=== PATIENT | male | born 1930 | race Caucasian/White ===

== ENCOUNTER 2018-02-25 09:19 | Inpatient (IN) | payer MEDICARE, OTHER ==
[~2018-02-25] VITALS: Ht 180.3 cm; Wt 96.4 kg
[~2018-02-25 09:19] MED LIST: ACYC800 PO; ALBIPROI; ALBU3IS INH; ALBU90I; ALBU90OI INH; ALBUIS INH; ALPR.5 PO; AMOCLA875 PO; AMOX500 PO; ASPI81EC PO; ATOR40TA PO; AZIT500 PO; BAYER CHEWABLE81 MG PO; BUDE10.22 INH; CEFD300 PO; CENTRUM SILVER1 EAC2 PO; CHOL10002 PO; CLAR500 PO; CLON.5 PO; CODGUAEL PO; DIAZ10; DIAZ10 PO; DIAZEPAM; DILT120 PO; DOXY100; DOXY100 PO; Ducodyl5 MG PO; ESCI20 PO; FLUSAL1005; FLUSAL1005 IH; FLUSAL2505 IH; HYDPAM25 PO; HYDROXYZPAM; LEVFLO500 PO; LISHYD1012 PO; LISI5 PO; LORA.5 PO; LORA2; METF500C PO; METO25ER PO; METO50; METO50 PO; METO50ER PO; METOPROLOL; MIRT15 PO; MULVITMINF PO; NITR.4SL SL; OMEP20ER; OMEP20ER PO; OMEP40CA12 PO; OMEPRAZOLE MAGN20 MG PO; OTC PROSTATE MED; OXYACE5T PO; Omeprazole20 M1 PO; PARO12.5; PARO20; PRAV20; PRAV20 PO; PRAV40 PO; PRED10 PO; PRED20 PO; Prednisone20 MG PO; QUET100 PO; TAMS.4ER; TAMS.4ER PO; TIOT18; TIOT18 IH; TUDORZA PRESS400 MCG IH; VENL150ER PO; Ventolin Soln3 ML INH; [UNRECOGNIZED DRUG - CODE] PO; [UNRECOGNIZED DRUG - OTHER]
[2018-02-25 10:03] LABS: BASOPHILS ABSOLUTE AUTO 0.03 K/mm3 (0.00-0.23); BASOPHILS PERCENT AUTO 0 % (0-2); EOSINOPHILS PERCENT AUTO 0 % (0-6); Hematocrit 40.4 % (37.0-53.0); Hemoglobin 12.8 g/dL (13.5-17.5); IMMATURE GRAN PERCENT AUTO 1 % (0-1); LYMPHOCYTES ABSOLUTE AUTO 0.97 K/mm3 (0.84-5.20); LYMPHOCYTES PERCENT AUTO 6 % (21-46); MONOCYTES ABSOLUTE AUTO 1.15 K/mm3 (0.16-1.47); MONOCYTES PERCENT AUTO 7 % (4-13); Mean Corpuscular HGB 29.1 pg (26.0-34.0); Mean Corpuscular HGB Conc 31.7 g/dL (31.5-36.5); Mean Corpuscular Volume 92 fL (80-100); Mean Platelet Volume 10.2 fL (9.1-12.4); NEUTROPHILS ABSOLUTE AUTO 14.22 K/mm3 (1.96-9.15); NEUTROPHILS PERCENT AUTO 86 % (41-73); Platelet Count 213 K/mm3 (150-400); White Blood Cell Count 16.47 K/mm3 (4.00-11.30)
[2018-02-25 10:18] LABS: Alanine Aminotransfer (ALT/SGP 24 U/L (12-78); Albumin, Blood 3.7 g/dL (3.4-5.0); Albumin/Globulin Ratio 0.9 (0.8-1.8); Alk Phos 109 U/L (50-136); Anion Gap 9 mmol/L (6-16); Aspartate Aminotrans (AST/SGOT 23 U/L (12-37); Blood Urea Nitrogen 18 mg/dL (8-24); Bun/Creatinine Ratio 15.7 (12.0-20.0); CO2, Blood 25 mmol/L (21-32); Calcium, Blood 8.8 mg/dL (8.5-10.1); Chloride, Blood 107 mmol/L (98-108); Creatinine, Blood 1.15 mg/dL (0.60-1.20); Globulin, Blood 4.2 g/dL (2.2-4.0); Glomerular Filtration Rate >60 (60-); Glucose, Blood 114 mg/dL (70-99); Potassium, Blood 4.2 mmol/L (3.5-5.5); Sodium, Blood 141 mmol/L (136-145); Total Protein, Blood 7.9 g/dL (6.4-8.2); Troponin I 0.092 ng/mL (0.000-0.040)
[2018-02-25] MEDS ORDERED: RISP.5 PO (12:44)
[2018-02-25 15:00] LABS: Source, Urine Voided
[2018-02-25 15:02] LABS: Bilirubin, Urine Neg (Neg); Blood, Urine 1+ (Neg); Glucose Qualitative, Urine Neg (Neg); Ketones, Urine Neg (Neg); Leukocyte Esterase, Urine Neg (Neg); Nitrite, Urine Neg (Neg); Protein, Urine Neg (Neg); Specific Gravity, Urine 1.015 (1.003-1.022); Urobilinogen, Urine NORM (Normal)
[2018-02-25 15:10] LABS: Appearance, Urine Clear (Clear); Color, Urine Yellow (P-Yellow)
[2018-02-25 15:11] LABS: White Blood Cells, Urine 0-2 /hpf (0-5)
[2018-02-25 15:12] LABS: Bacteria Few /hpf; Squamous Epithelial Cells Few /hpf (Few)
[2018-02-25] MEDS ORDERED: ESCI20 PO (16:06)
[2018-02-25 17:27] LABS: Adenovirus Not Detected (NOT DETECT); Bordetella pertussis Not Detected (NOT DETECT); Chlamydophila pneumoniae Not Detected (NOT DETECT); Coronavirus 229E Not Detected (NOT DETECT); Coronavirus HKU1 Not Detected (NOT DETECT); Coronavirus NL63 Not Detected (NOT DETECT); Coronavirus OC43 Not Detected (NOT DETECT); Human Metapneumovirus Not Detected (NOT DETECT); Human Rhinovirus/Enterovirus Not Detected (NOT DETECT); Influenza A/2009-H1 Not Detected (NOT DETECT); Influenza A/H1 Not Detected (NOT DETECT); Influenza A/H3 Not Detected (NOT DETECT); Influenza B Not Detected (NOT DETECT); Mycoplasma pneumoniae Not Detected (NOT DETECT); Parainfluenza Virus 1 Not Detected (NOT DETECT); Parainfluenza Virus 2 Not Detected (NOT DETECT); Parainfluenza Virus 3 Not Detected (NOT DETECT); Parainfluenza Virus 4 Not Detected (NOT DETECT); Respiratory Syncytial Virus Not Detected (NOT DETECT)
[2018-02-25 19:15] LABS: Influenza A Not Detected (NOT DETECT)
[2018-02-26 06:16] LABS: BASOPHILS ABSOLUTE AUTO 0.01 K/mm3 (0.00-0.23); BASOPHILS PERCENT AUTO 0 % (0-2); EOSINOPHILS PERCENT AUTO 0 % (0-6); Hematocrit 36.5 % (37.0-53.0); Hemoglobin 11.4 g/dL (13.5-17.5); IMMATURE GRAN ABSOLUTE AUTO 0.14 K/mm3 (0.00-0.10); IMMATURE GRAN PERCENT AUTO 1 % (0-1); LYMPHOCYTES ABSOLUTE AUTO 1.42 K/mm3 (0.84-5.20); LYMPHOCYTES PERCENT AUTO 9 % (21-46); MONOCYTES ABSOLUTE AUTO 0.37 K/mm3 (0.16-1.47); MONOCYTES PERCENT AUTO 3 % (4-13); Mean Corpuscular HGB 28.7 pg (26.0-34.0); Mean Corpuscular HGB Conc 31.2 g/dL (31.5-36.5); Mean Corpuscular Volume 92 fL (80-100); Mean Platelet Volume 10.9 fL (9.1-12.4); NEUTROPHILS ABSOLUTE AUTO 13.13 K/mm3 (1.96-9.15); NEUTROPHILS PERCENT AUTO 87 % (41-73); Platelet Count 193 K/mm3 (150-400); RDW Coefficient Variation 15.2 % (11.7-14.2); Red Blood Cell Count 3.97 M/mm3 (4.30-5.90); White Blood Cell Count 15.07 K/mm3 (4.00-11.30)
[2018-02-26 06:34] LABS: Anion Gap 10 mmol/L (6-16); Blood Urea Nitrogen 20 mg/dL (8-24); Bun/Creatinine Ratio 21.7 (12.0-20.0); CO2, Blood 25 mmol/L (21-32); Calcium, Blood 8.7 mg/dL (8.5-10.1); Chloride, Blood 105 mmol/L (98-108); Creatinine, Blood 0.92 mg/dL (0.60-1.20); Glomerular Filtration Rate >60 (60-); Glucose, Blood 169 mg/dL (70-99); Potassium, Blood 3.9 mmol/L (3.5-5.5); Sodium, Blood 140 mmol/L (136-145)
[2018-02-26 18:48] LABS: Adenovirus F 40/41 Not Detected (NOT DETECT); Astrovirus Not Detected (NOT DETECT); Campylobacter Sp Not Detected (NOT DETECT); Cryptosporidium Not Detected (NOT DETECT); Cyclospora Cayetanensis Not Detected (NOT DETECT); E. Coli O157 Not Detected (NOT DETECT); Entamoeba Histolytica Not Detected (NOT DETECT); Enteroaggregative E. coli-EAEC Not Detected (NOT DETECT); Enteropathogenic E. coli-EPEC Not Detected (NOT DETECT); Enterotoxigenic E. coli-ETEC Not Detected (NOT DETECT); Giardia Lamblia Not Detected (NOT DETECT); Norovirus GI/GII Not Detected (NOT DETECT); Plesiomonas Shigelloides Not Detected (NOT DETECT); Rotavirus A Not Detected (NOT DETECT); Salmonella Sp Not Detected (NOT DETECT); Sapovirus Not Detected (NOT DETECT); Shiga Toxin-prod E. coli-STEC Not Detected (NOT DETECT); Shigella/Enteroin E. coli-EIEC Not Detected (NOT DETECT); Vibrio Cholerae Not Detected (NOT DETECT); Vibrio Sp Not Detected (NOT DETECT); Yersinia Enterocolitica Not Detected (NOT DETECT)
[2018-02-27 04:56] LABS: BASOPHILS ABSOLUTE AUTO 0.01 K/mm3 (0.00-0.23); BASOPHILS PERCENT AUTO 0 % (0-2); EOSINOPHILS PERCENT AUTO 0 % (0-6); Hematocrit 33.6 % (37.0-53.0); Hemoglobin 10.5 g/dL (13.5-17.5); IMMATURE GRAN ABSOLUTE AUTO 0.11 K/mm3 (0.00-0.10); IMMATURE GRAN PERCENT AUTO 1 % (0-1); LYMPHOCYTES ABSOLUTE AUTO 1.04 K/mm3 (0.84-5.20); LYMPHOCYTES PERCENT AUTO 8 % (21-46); MONOCYTES ABSOLUTE AUTO 0.44 K/mm3 (0.16-1.47); MONOCYTES PERCENT AUTO 3 % (4-13); Mean Corpuscular HGB 29.1 pg (26.0-34.0); Mean Corpuscular HGB Conc 31.3 g/dL (31.5-36.5); Mean Corpuscular Volume 93 fL (80-100); Mean Platelet Volume 10.9 fL (9.1-12.4); NEUTROPHILS ABSOLUTE AUTO 11.44 K/mm3 (1.96-9.15); NEUTROPHILS PERCENT AUTO 88 % (41-73); Platelet Count 182 K/mm3 (150-400); RDW Coefficient Variation 15.6 % (11.7-14.2); RDW Standard Deviation 53.4 fL (35.1-46.3); Red Blood Cell Count 3.61 M/mm3 (4.30-5.90); White Blood Cell Count 13.04 K/mm3 (4.00-11.30)
[2018-02-27 05:14] LABS: Anion Gap 8 mmol/L (6-16); Blood Urea Nitrogen 21 mg/dL (8-24); Bun/Creatinine Ratio 22.9 (12.0-20.0); CO2, Blood 24 mmol/L (21-32); Calcium, Blood 8.3 mg/dL (8.5-10.1); Chloride, Blood 112 mmol/L (98-108); Creatinine, Blood 0.92 mg/dL (0.60-1.20); Glomerular Filtration Rate >60 (60-); Glucose, Blood 151 mg/dL (70-99); Potassium, Blood 4.3 mmol/L (3.5-5.5); Sodium, Blood 144 mmol/L (136-145)
[2018-03-01] MEDS ORDERED: DELTASONE20 MG PO (12:36)
[2018-03-01] MEDS ORDERED: Advair Hfa 45-212 GM INH (12:37)
== END 2018-03-01 13:32 | disposition home or self-care (01) | DRG 189 ==
LOC: ER 09:19 → MEDS 12:19 → ENPENDDIS 03-01 11:30 → MEDS 03-01 13:32
PROVIDERS: Emergency Medicine; Hospitalist
DX: J96.21 Acute and chronic respiratory failure with hypoxia (principal); G92 Toxic encephalopathy; I21.A1 Myocardial infarction type 2; E87.2 Acidosis; J44.1 Chronic obstructive pulmonary disease with (acute) exacerbation; A08.4 Viral intestinal infection, unspecified; E11.9 Type 2 diabetes mellitus without complications; Z85.118 Personal history of other malignant neoplasm of bronchus and lung; Z90.2 Acquired absence of lung [part of]; Z87.891 Personal history of nicotine dependence; E78.5 Hyperlipidemia, unspecified; K21.9 Gastro-esophageal reflux disease without esophagitis
CPT/HCPCS: 36415; 71046; 80048; 80053; 81001; 82947; 83605; 84145; 84484; 85025; 87040; 87070; 87205; 87486; 87507; 87581; 87633; 87798; 93005; 93010; 94640; 94760; 94762; 96361; 96365; 96367; 96375; 97162; 97530; 99285-25; G8978; G8979; G8980; J0456; J0696; J1650; J2920; J2930; J3475; J7030; J7050

== ENCOUNTER 2018-12-01 12:43 | Inpatient (IN) | payer MEDICARE, OTHER ==
[~2018-12-01] VITALS: Ht 177.8 cm; Wt 96.2 kg
[~2018-12-01 12:43] MED LIST changes: +Advair Hfa 45-212 GM INH; +DELTASONE20 MG PO; +RISP.5 PO
[2018-12-01 13:56] LABS: BASOPHILS ABSOLUTE AUTO 0.04 K/mm3 (0.00-0.23); BASOPHILS PERCENT AUTO 0 % (0-2); EOSINOPHILS PERCENT AUTO 0 % (0-6); Hematocrit 42.1 % (37.0-53.0); Hemoglobin 13.3 g/dL (13.5-17.5); IMMATURE GRAN ABSOLUTE AUTO 0.17 K/mm3 (0.00-0.10); IMMATURE GRAN PERCENT AUTO 1 % (0-1); LYMPHOCYTES ABSOLUTE AUTO 1.67 K/mm3 (0.84-5.20); LYMPHOCYTES PERCENT AUTO 8 % (21-46); MONOCYTES ABSOLUTE AUTO 0.95 K/mm3 (0.16-1.47); MONOCYTES PERCENT AUTO 5 % (4-13); Mean Corpuscular HGB 27.2 pg (26.0-34.0); Mean Corpuscular HGB Conc 31.6 g/dL (31.5-36.5); Mean Corpuscular Volume 86 fL (80-100); Mean Platelet Volume 10.3 fL (9.1-12.4); NEUTROPHILS PERCENT AUTO 86 % (41-73); Platelet Count 202 K/mm3 (150-400); RDW Coefficient Variation 15.5 % (11.7-14.2); RDW Standard Deviation 48.9 fL (35.1-46.3); Red Blood Cell Count 4.89 M/mm3 (4.30-5.90); White Blood Cell Count 20.13 K/mm3 (4.00-11.30)
[2018-12-01 14:15] LABS: Alanine Aminotransfer (ALT/SGP 32 U/L (12-78); Albumin, Blood 3.9 g/dL (3.4-5.0); Alk Phos 114 U/L (50-136); Anion Gap 4 mmol/L (6-16); Aspartate Aminotrans (AST/SGOT 32 U/L (12-37); Bilirubin, Total 1.3 mg/dL (0.1-1.0); Blood Urea Nitrogen 20 mg/dL (8-24); Bun/Creatinine Ratio 17.1 (12.0-20.0); CO2, Blood 29 mmol/L (21-32); Calcium, Blood 8.8 mg/dL (8.5-10.1); Chloride, Blood 103 mmol/L (98-108); Creatinine, Blood 1.17 mg/dL (0.60-1.20); Globulin, Blood 4.1 g/dL (2.2-4.0); Glomerular Filtration Rate >60 (60-); Glucose, Blood 134 mg/dL (70-99); Potassium, Blood 4.7 mmol/L (3.5-5.5); Sodium, Blood 136 mmol/L (136-145); Troponin I <0.015 ng/mL (0.000-0.040)
[2018-12-01 14:39] LABS: Source, Urine Clean Catch
[2018-12-01 14:52] LABS: Bilirubin, Urine Neg (Neg); Blood, Urine 1+ (Neg); Glucose Qualitative, Urine Neg (Neg); Ketones, Urine Neg (Neg); Leukocyte Esterase, Urine Neg (Neg); Nitrite, Urine Neg (Neg); Protein, Urine 1+ (Neg); Specific Gravity, Urine 1.015 (1.003-1.022); Urobilinogen, Urine NORM (Normal)
[2018-12-01 15:02] LABS: Appearance, Urine Clear (Clear); Color, Urine Yellow (P-Yellow)
[2018-12-01 15:19] LABS: Bacteria Few /hpf; Mucus Light (0-Heavy); Red Blood Cells, Urine Rare /hpf (0-2); Squamous Epithelial Cells Few /hpf (Few); White Blood Cells, Urine Rare /hpf (0-5)
[2018-12-02] MEDS ORDERED: DUTA.5 PO (02:54)
[2018-12-02] MEDS ORDERED: ANORO ELLIPTA1 EACH INH (03:00)
[2018-12-02] MEDS ORDERED: ATOR40TA PO (03:02)
[2018-12-02] MEDS ORDERED: OMEPRAZOLE20 MG PO (03:02)
--- NOTE | 2018-12-02 04:48 | NUR ---
SHIFT SUMMARY PT ARRIVED TO FLOOR IN NO DISTRESS. PT DAUGHTER STAYED NIGHT WITH PT. PT HAS NO COMPLAINTS. PT IS SLEEPING WELL WITH CPAP. PT HAS NO DENTURES AND HAS DIFFICULTY EATING PER DAUGHTER. PT DAUGHTER STATES PT WILL BE RECIEVING SET OF DENTURES VERY SOON. PT CURRENTLY SLEEPING WITH CPAP AND BREATHING EASY. CALL LIGHT IN REACH AND BED ALARM ON.
[2018-12-02 05:22] LABS: BASOPHILS ABSOLUTE AUTO 0.02 K/mm3 (0.00-0.23); BASOPHILS PERCENT AUTO 0 % (0-2); EOSINOPHILS PERCENT AUTO 0 % (0-6); Hematocrit 35.4 % (37.0-53.0); IMMATURE GRAN ABSOLUTE AUTO 0.03 K/mm3 (0.00-0.10); IMMATURE GRAN PERCENT AUTO 0 % (0-1); LYMPHOCYTES ABSOLUTE AUTO 2.58 K/mm3 (0.84-5.20); LYMPHOCYTES PERCENT AUTO 29 % (21-46); MONOCYTES PERCENT AUTO 9 % (4-13); Mean Corpuscular HGB 27.9 pg (26.0-34.0); Mean Corpuscular HGB Conc 31.1 g/dL (31.5-36.5); Mean Platelet Volume 10.6 fL (9.1-12.4); NEUTROPHILS ABSOLUTE AUTO 5.53 K/mm3 (1.96-9.15); NEUTROPHILS PERCENT AUTO 62 % (41-73); Platelet Count 150 K/mm3 (150-400); RDW Coefficient Variation 15.9 % (11.7-14.2); RDW Standard Deviation 52.3 fL (35.1-46.3); Red Blood Cell Count 3.94 M/mm3 (4.30-5.90); White Blood Cell Count 8.96 K/mm3 (4.00-11.30)
[2018-12-02 05:24] LABS: Mean Corpuscular Volume 90 fL (80-100)
[2018-12-02 05:37] LABS: Anion Gap 5 mmol/L (6-16); Blood Urea Nitrogen 27 mg/dL (8-24); Bun/Creatinine Ratio 22.9 (12.0-20.0); CO2, Blood 30 mmol/L (21-32); Calcium, Blood 8.2 mg/dL (8.5-10.1); Chloride, Blood 108 mmol/L (98-108); Creatinine, Blood 1.18 mg/dL (0.60-1.20); Glomerular Filtration Rate >60 (60-); Glucose, Blood 94 mg/dL (70-99); Potassium, Blood 3.6 mmol/L (3.5-5.5); Sodium, Blood 143 mmol/L (136-145)
--- NOTE | 2018-12-02 06:09 | NUR ---
C-pap hose fell off and trestle builder reconnected the hose, sats on pt said 89-90 consistantly on room air
--- NOTE | 2018-12-02 09:22 | NUR ---
TALKED TO ABOUT MEDS; LIPITOR, AVODART AND RESPIRIDONE EITHER NOT ORDERED OR INCORRECT TIMES. OK TO ORDER.
--- NOTE | 2018-12-02 14:06 | NUR ---
ECHOCARDIOGRAM COMPLETE
--- NOTE | 2018-12-02 15:12 | NUR ---
TALKED TO ABOUT CHECKING PATIENTS BLD SUGAR. ORDER AC/HS BLS SUGAR CHECK, LOW INSULIN SLIDING SCALE AND METFORMIN 500 MG BID.
--- NOTE | 2018-12-02 17:19 | NUR ---
ALERT. ORIENTED. COOPERATIVE. PLEASANT.ONE PERSON ASSIST TO BSC. WALKED IN HALLWAY W/P.T. WITH SATS GOOD. ON 2LPM OXYGEN IN ROOM W/SATS MID 90'S.NO C/O FROM PATIENT. RELATIVES STAY AND VISIT MOST OF DAY. PER DAUGHTER NO HH IS NEEDED. TAKES MEDS WHOLE W/WATER. ON CONTINUOUS SATS. WCTM.
--- NOTE | 2018-12-03 06:13 | NUR ---
SHIFT SUMMARY PT HAD NO ISSUES NOTED THIS SHIFT. PT HAS SLEPT WELL WITH O2 VIA NC. PT IS NOTICABLY STRONGER COMPARED TO PREVIOUS NIGHT.PT STILL REQUIRES SBA TO RESTROOM. PT IS CURRENTLY SLEEPING AND BREATHING EASY. PT TOOK HIS MEDS WHOLE WITH APPLESAUCE WITHOUT DIFFICULTY. CALL LIGHT IN REACH AND BED ALARM ON.
[2018-12-03] MEDS ORDERED: ASPI81CH PO (13:20)
--- NOTE | 2018-12-03 18:20 | NUR ---
SHIFT SUMMARY PATIENT IS ORIENTED TO PERSON, LOCATION, AND SITUATION FOR THE MOST PART. BED ALARM IS ON, PATIENT DOES NOT USE THE CALL BUTTON TO CALL STAFF. HE IS ON 2L 02, CONTINUOUS PULSE OX, AND IV TUBING AT TIMES. HE IS HARD OF HEARING. PATIENT DENIES PAIN, DIZZINESS, NAUSEA. HE HAS SOME SOB WITH EXERTION AND WHEEZES AFTER WALKING IN ROOM. PT WALKS TO BATHROOM WITH STANDBY ASSIST AND FWW.PT SAT IN CHAIR FOR BREAKFAST AND LUNCH BUT REFUSED FOR DINNER. MULTIPLE DAUGHTERS WERE IN ROOM TO VISIT TODAY. PATIENT USING URINAL ON SIDE OF BED FREQUENTLY, FAMILY CONCERNED ABOUT CT RESULTS SHOWING AN ENLARGED PROSTATE. HOSPITALIST EXPLAINED IT IS A COMMON OCCURENCE AT THIS AGE AND CAN BE FOLLOWED UP WITH AT HIS PCP UNLESS IT IS CAUSING MAJOR ISSUES. PT HAD A COUPLE LARGE BROWN FORMED/SOFT BMS.
[2018-12-04 05:02] LABS: BASOPHILS ABSOLUTE AUTO 0.01 K/mm3 (0.00-0.23); BASOPHILS PERCENT AUTO 0 % (0-2); EOSINOPHILS PERCENT AUTO 0 % (0-6); Hematocrit 38.5 % (37.0-53.0); Hemoglobin 12.1 g/dL (13.5-17.5); IMMATURE GRAN ABSOLUTE AUTO 0.01 K/mm3 (0.00-0.10); IMMATURE GRAN PERCENT AUTO 0 % (0-1); LYMPHOCYTES ABSOLUTE AUTO 1.69 K/mm3 (0.84-5.20); LYMPHOCYTES PERCENT AUTO 35 % (21-46); MONOCYTES ABSOLUTE AUTO 0.52 K/mm3 (0.16-1.47); MONOCYTES PERCENT AUTO 11 % (4-13); Mean Corpuscular HGB 27.6 pg (26.0-34.0); Mean Corpuscular HGB Conc 31.4 g/dL (31.5-36.5); Mean Corpuscular Volume 88 fL (80-100); Mean Platelet Volume 9.9 fL (9.1-12.4); NEUTROPHILS ABSOLUTE AUTO 2.56 K/mm3 (1.96-9.15); NEUTROPHILS PERCENT AUTO 53 % (41-73); Platelet Count 147 K/mm3 (150-400); RDW Coefficient Variation 15.6 % (11.7-14.2); RDW Standard Deviation 49.7 fL (35.1-46.3); Red Blood Cell Count 4.39 M/mm3 (4.30-5.90); White Blood Cell Count 4.79 K/mm3 (4.00-11.30)
[2018-12-04 05:31] LABS: Anion Gap 5 mmol/L (6-16); Blood Urea Nitrogen 15 mg/dL (8-24); Bun/Creatinine Ratio 15.7 (12.0-20.0); CO2, Blood 30 mmol/L (21-32); Calcium, Blood 8.7 mg/dL (8.5-10.1); Chloride, Blood 106 mmol/L (98-108); Creatinine, Blood 0.96 mg/dL (0.60-1.20); Glomerular Filtration Rate >60 (60-); Glucose, Blood 122 mg/dL (70-99); Potassium, Blood 3.9 mmol/L (3.5-5.5); Sodium, Blood 141 mmol/L (136-145)
--- NOTE | 2018-12-04 07:26 | NUR ---
PATIENT IMPULSIVE WHEN AWAKE. PATIENT SLEPT WELL THROUGH THE NIGHT. CALL LIGHT REMAINED WITH IN REACH. PATIENT HAS NOT USED IT. BED ALARM ON.
[2018-12-04] MEDS ORDERED: ESCI10 (11:11)
[2018-12-04] MEDS ORDERED: ACET325 PO (11:12)
[2018-12-04] MEDS ORDERED: LEVFLO500 PO (11:13)
[2018-12-04] MEDS ORDERED: ONDA4ODT (11:15)
[2018-12-04] MEDS ORDERED: AIRDUO RESPICL1 EAC1 (11:16)
[2018-12-04] MEDS ORDERED: SENN187 (11:17)
[2018-12-04] MEDS ORDERED: TAMS.4ER PO (11:17)
[2018-12-04] MEDS ORDERED: MIRT15 PO (11:20)
[2018-12-04] MEDS ORDERED: RISP.5 PO (11:21)
--- NOTE | 2018-12-04 15:45 | NUR ---
DISCHARGE PATIENT DISCHARGED AT 1522 TO GO WITH DAUGHTER TO HER HOME. IV REMOVED, ALL BELONGINGS SENT WITH PATIENT. PAPER PRESCRIPTION FOR FWW SENT WITH DAUGHTER. MED LIST EXPLAINED TO PATIENT AND THE 2 DAUGHTERS PRESENT, CRIS WHO WORKS IN ADMITTING AND THE YOUNGEST ONE (12 TOTAL CHILDREN). ANOTHER DAUGHTER ARCHANA IS THE BEST TRANSPORTATION OFFICER FOR THEIR FATHER, HER NUMBER IS [phone]. DC PACKET GIVEN, PT SIGNED DC FORM.
== END 2018-12-04 15:20 | disposition home health service (06) | DRG 871 ==
LOC: ER 12:43 → MEDS 18:18 → ENPENDDIS 12-04 10:39 → MEDS 12-04 15:20
PROVIDERS: Emergency Medicine; Internal Medicine; Physician Assistant; ADMIT Hospitalist
DX: A41.9 Sepsis, unspecified organism (principal); J69.0 Pneumonitis due to inhalation of food and vomit; E87.2 Acidosis; F19.939 Other psychoactive substance use, unspecified with withdrawal, unspecified; N40.1 Benign prostatic hyperplasia with lower urinary tract symptoms; Z79.82 Long term (current) use of aspirin; J44.9 Chronic obstructive pulmonary disease, unspecified; Z87.891 Personal history of nicotine dependence; Z90.2 Acquired absence of lung [part of]; G47.33 Obstructive sleep apnea (adult) (pediatric); F41.8 Other specified anxiety disorders; I10 Essential (primary) hypertension; M10.9 Gout, unspecified; K21.9 Gastro-esophageal reflux disease without esophagitis; Z90.3 Acquired absence of stomach [part of]; Z85.118 Personal history of other malignant neoplasm of bronchus and lung; R33.9 Retention of urine, unspecified; R65.20 Severe sepsis without septic shock
CPT/HCPCS: 36415; 71046; 74177; 80048; 80053; 81001; 83605; 83880; 84145; 84484; 85025; 87040; 88305; 92523; 92610; 93005; 93010; 93306; 94640; 94660; 94760; 94761; 94762; 96361; 96365-59; 96366; 96375; 97110; 97116; 97162; 97530; 99285-25; J0456; J0696; J1650; J1940; J7030; J7050; Q9967

== ENCOUNTER 2019-04-27 08:12 | Inpatient (IN) | payer MEDICARE, OTHER ==
[~2019-04-27] VITALS: Ht 180.3 cm; Wt 96.0 kg
[~2019-04-27 08:12] MED LIST changes: +ACET325 PO; +AIRDUO RESPICL1 EAC1; +AIRDUO RESPICL1 EAC2 INH; +ALBU2.5V5 INH; +ANORO ELLIPTA1 EACH INH; +ASPI81CH PO; +Avodart0.5 MG PO; +DUTA.5 PO; +ESCI10; +GUAI600T33 PO; +LEVOFLOXACIN750 MG PO; +Lasix20 MG PO; +OMEPRAZOLE20 MG PO; +ONDA4ODT; +POTCHL20ER PO; +SENN187
[2019-04-27 09:20] LABS: BASOPHILS ABSOLUTE AUTO 0.01 K/mm3 (0.00-0.23); BASOPHILS PERCENT AUTO 0 % (0-2); EOSINOPHILS PERCENT AUTO 0 % (0-6); Hemoglobin 13.7 g/dL (13.5-17.5); IMMATURE GRAN ABSOLUTE AUTO 0.08 K/mm3 (0.00-0.10); IMMATURE GRAN PERCENT AUTO 1 % (0-1); LYMPHOCYTES ABSOLUTE AUTO 0.94 K/mm3 (0.84-5.20); LYMPHOCYTES PERCENT AUTO 8 % (21-46); MONOCYTES ABSOLUTE AUTO 0.82 K/mm3 (0.16-1.47); MONOCYTES PERCENT AUTO 7 % (4-13); Mean Corpuscular HGB 27.9 pg (26.0-34.0); Mean Corpuscular HGB Conc 31.1 g/dL (31.5-36.5); Mean Corpuscular Volume 90 fL (80-100); Mean Platelet Volume 10.2 fL (9.1-12.4); NEUTROPHILS ABSOLUTE AUTO 10.01 K/mm3 (1.96-9.15); NEUTROPHILS PERCENT AUTO 84 % (41-73); Platelet Count 193 K/mm3 (150-400); RDW Coefficient Variation 15.5 % (11.7-14.2); RDW Standard Deviation 50.8 fL (35.1-46.3); Red Blood Cell Count 4.91 M/mm3 (4.30-5.90); White Blood Cell Count 11.86 K/mm3 (4.00-11.30)
[2019-04-27 09:36] LABS: Alanine Aminotransfer (ALT/SGP 28 U/L (12-78); Albumin, Blood 3.7 g/dL (3.4-5.0); Albumin/Globulin Ratio 0.9 (0.8-1.8); Alk Phos 126 U/L (50-136); Anion Gap 5 mmol/L (6-16); Aspartate Aminotrans (AST/SGOT 25 U/L (12-37); Bilirubin, Total 0.9 mg/dL (0.1-1.0); Blood Urea Nitrogen 25 mg/dL (8-24); Bun/Creatinine Ratio 22.3 (12.0-20.0); CO2, Blood 25 mmol/L (21-32); Calcium, Blood 8.6 mg/dL (8.5-10.1); Chloride, Blood 108 mmol/L (98-108); Creatinine, Blood 1.12 mg/dL (0.60-1.20); Globulin, Blood 4.1 g/dL (2.2-4.0); Glomerular Filtration Rate >60 (60-); Glucose, Blood 180 mg/dL (70-99); Sodium, Blood 138 mmol/L (136-145); Total Protein, Blood 7.8 g/dL (6.4-8.2); Troponin I <0.015 ng/mL (0.000-0.040)
--- NOTE | 2019-04-27 17:32 | NUR ---
SUMMARY PT ADMITTED FROM THE ER, PLEASANT AND COOPERATIVE, ABLE TO TRANSFER SELF FROM GURNEY TO BED WITH MINIMAL ASSIST, FAMILY HAS BEEN IN TO VISIT, PT ABLE TO USE THE URINAL INDEPENDENTLY, VSS, NO ACUTE CHANGES, WILL CONT TO MONITOR
[2019-04-28 04:51] LABS: BASOPHILS ABSOLUTE AUTO 0.01 K/mm3 (0.00-0.23); BASOPHILS PERCENT AUTO 0 % (0-2); EOSINOPHILS PERCENT AUTO 0 % (0-6); Hematocrit 38.3 % (37.0-53.0); IMMATURE GRAN PERCENT AUTO 2 % (0-1); LYMPHOCYTES PERCENT AUTO 15 % (21-46); MONOCYTES ABSOLUTE AUTO 0.54 K/mm3 (0.16-1.47); MONOCYTES PERCENT AUTO 4 % (4-13); Mean Corpuscular HGB 27.6 pg (26.0-34.0); Mean Corpuscular HGB Conc 31.3 g/dL (31.5-36.5); Mean Corpuscular Volume 88 fL (80-100); Mean Platelet Volume 10.3 fL (9.1-12.4); NEUTROPHILS PERCENT AUTO 79 % (41-73); Platelet Count 181 K/mm3 (150-400); RDW Coefficient Variation 15.6 % (11.7-14.2); RDW Standard Deviation 49.9 fL (35.1-46.3); Red Blood Cell Count 4.34 M/mm3 (4.30-5.90); White Blood Cell Count 12.25 K/mm3 (4.00-11.30)
--- NOTE | 2019-04-28 05:05 | NUR ---
SHIFT SUMMARY: VSS. AFEB. A/OX3. DEMONSTRATES SOME CONFUSED STATEMENTS IN CONVERSATION BUT IS [place] W/NO HEAR AIDS AT THE TIME. 02 SAT 91% ON RA. DISCUSSED W/ PT CPAP USE. PT REFUSED CPAP. HOB ELEVATED 30 DEGREES PER PT PREFERENCE. HAS BEEN SLEEPING MUCH OF NIGHT, SNORING. RESPS REG, NON-LABORED. LS DIM. OCC NON-PRODUCTIVE COUGHING. NO EDEMA TO LE. DENIES PAIN. BED LOW, CALL BUTTON IN REACH.
[2019-04-28 05:10] LABS: Alanine Aminotransfer (ALT/SGP 22 U/L (12-78); Albumin, Blood 3.3 g/dL (3.4-5.0); Albumin/Globulin Ratio 0.8 (0.8-1.8); Alk Phos 99 U/L (50-136); Anion Gap 7 mmol/L (6-16); Aspartate Aminotrans (AST/SGOT 19 U/L (12-37); Bilirubin, Total 1.1 mg/dL (0.1-1.0); Blood Urea Nitrogen 28 mg/dL (8-24); Bun/Creatinine Ratio 24.8 (12.0-20.0); CO2, Blood 29 mmol/L (21-32); Calcium, Blood 8.6 mg/dL (8.5-10.1); Chloride, Blood 102 mmol/L (98-108); Creatinine, Blood 1.13 mg/dL (0.60-1.20); Globulin, Blood 3.9 g/dL (2.2-4.0); Glomerular Filtration Rate >60 (60-); Glucose, Blood 160 mg/dL (70-99); Magnesium, Blood 2.2 mg/dL (1.6-2.4); Potassium, Blood 3.4 mmol/L (3.5-5.5); Sodium, Blood 138 mmol/L (136-145); Total Protein, Blood 7.2 g/dL (6.4-8.2)
[2019-04-28 11:40] LABS: Adenovirus Not Detected (NOT DETECT); Bordetella pertussis Not Detected (NOT DETECT); Chlamydophila pneumoniae Not Detected (NOT DETECT); Coronavirus 229E Not Detected (NOT DETECT); Coronavirus HKU1 Not Detected (NOT DETECT); Coronavirus NL63 Not Detected (NOT DETECT); Coronavirus OC43 Not Detected (NOT DETECT); Human Metapneumovirus Not Detected (NOT DETECT); Human Rhinovirus/Enterovirus Not Detected (NOT DETECT); Influenza A Not Detected (NOT DETECT); Influenza A/2009-H1 Not Detected (NOT DETECT); Influenza A/H1 Not Detected (NOT DETECT); Influenza A/H3 Not Detected (NOT DETECT); Influenza B Not Detected (NOT DETECT); Mycoplasma pneumoniae Not Detected (NOT DETECT); Parainfluenza Virus 1 Not Detected (NOT DETECT); Parainfluenza Virus 2 Not Detected (NOT DETECT); Parainfluenza Virus 3 Not Detected (NOT DETECT); Parainfluenza Virus 4 Not Detected (NOT DETECT); Respiratory Syncytial Virus Not Detected (NOT DETECT)
--- NOTE | 2019-04-28 17:51 | NUR ---
SUMMARY PT SITTING UP IN BED EATING DINNER, PT HAS BEEN PLEASANT AND COOPERATIVE WITH CARE, UP TO THE SHOWER TODAY, PT DID C/O SOB AFTER AND WAS PLACED ON OXYGEN BRIEFLY AND GIVEN A BREATHING TREATMENT, GOOD RESULTS, VSS, NO ACUTE CHANGES, WILL CONT TO MONITOR
[2019-04-29 05:29] LABS: BASOPHILS ABSOLUTE AUTO 0.01 K/mm3 (0.00-0.23); BASOPHILS PERCENT AUTO 0 % (0-2); EOSINOPHILS PERCENT AUTO 0 % (0-6); Hematocrit 37.1 % (37.0-53.0); Hemoglobin 11.6 g/dL (13.5-17.5); IMMATURE GRAN ABSOLUTE AUTO 0.07 K/mm3 (0.00-0.10); IMMATURE GRAN PERCENT AUTO 1 % (0-1); LYMPHOCYTES ABSOLUTE AUTO 2.35 K/mm3 (0.84-5.20); LYMPHOCYTES PERCENT AUTO 24 % (21-46); MONOCYTES ABSOLUTE AUTO 0.84 K/mm3 (0.16-1.47); MONOCYTES PERCENT AUTO 9 % (4-13); Mean Corpuscular HGB 27.8 pg (26.0-34.0); Mean Corpuscular HGB Conc 31.3 g/dL (31.5-36.5); Mean Corpuscular Volume 89 fL (80-100); Mean Platelet Volume 10.5 fL (9.1-12.4); NEUTROPHILS ABSOLUTE AUTO 6.48 K/mm3 (1.96-9.15); NEUTROPHILS PERCENT AUTO 67 % (41-73); Platelet Count 195 K/mm3 (150-400); RDW Coefficient Variation 15.9 % (11.7-14.2); RDW Standard Deviation 51.8 fL (35.1-46.3); Red Blood Cell Count 4.17 M/mm3 (4.30-5.90); White Blood Cell Count 9.75 K/mm3 (4.00-11.30)
--- NOTE | 2019-04-29 05:43 | NUR ---
SHIFT SUMMARY: VSS. AFEB. PT STATES HE DID NOT SLEEP ALL NIGHT. A/OX3. FORGETFUL. COMMUNICATES NEEDS. DENIES PAIN. RESPS REGULAR, NON-LABORED. EXP WHEEZE AUSCULATED BILATERALLY. HOB ELEVATED TO 30 DEGREES FOR COMFORT. 02 SAT 91% ON RA. REFUSES CPAP. NO ACUTE CHANGES OVER NIGHT. WILL CONT TO MONITOR.
[2019-04-29 05:51] LABS: Anion Gap 5 mmol/L (6-16); Blood Urea Nitrogen 27 mg/dL (8-24); CO2, Blood 29 mmol/L (21-32); Calcium, Blood 8.5 mg/dL (8.5-10.1); Chloride, Blood 107 mmol/L (98-108); Creatinine, Blood 0.96 mg/dL (0.60-1.20); Glomerular Filtration Rate >60 (60-); Glucose, Blood 103 mg/dL (70-99); Magnesium, Blood 2.4 mg/dL (1.6-2.4); Potassium, Blood 3.7 mmol/L (3.5-5.5); Sodium, Blood 141 mmol/L (136-145)
[2019-04-29] MEDS ORDERED: BENADRYL25 MG PO (12:18)
[2019-04-29] MEDS ORDERED: PRED20 PO (12:19)
[2019-04-29] MEDS ORDERED: LEVO750 PO (12:20)
[2019-04-29] MEDS ORDERED: Florastor250 MG PO (12:20)
--- NOTE | 2019-04-29 14:04 | NUR ---
PT DISCHARGED AT 1255. PT HAS BEEN AOX4 TODAY AND COOPERATIVE OF CARE.PT ABLE TO STAND AND AMBULATE SLOWLY. ALL PAPERWORK REVIEWED AND EDCUATIONAL MATERIAL SENT HOME. MEDICATIONS FAXED TO [facility]. PT LOOKED TO BE PUFFY AND RED AROUND EYES TODAY. DR BURTON NOTIFIED AND BENADRYL WAS ADDED TO EMAR AND SEEMED TO BE EFFECTIVE. PT ESCORTED OUT VIA WHEELCHAIR BY THIS DEVELOPMENT DIRECTOR TO [facility]. NO DISTRESS NOTED.
== END 2019-04-29 12:58 | disposition home or self-care (01) | DRG 871 ==
LOC: ER 08:12 → MEDS 12:18 → ENPENDDIS 04-29 12:42 → MEDS 04-29 12:58
PROVIDERS: Emergency Medicine; Nurse Practitioner Acute Care; ADMIT Internal Medicine
DX: A41.9 Sepsis, unspecified organism (principal); J18.9 Pneumonia, unspecified organism; J44.1 Chronic obstructive pulmonary disease with (acute) exacerbation; J44.0 Chronic obstructive pulmonary disease with (acute) lower respiratory infection; I50.32 Chronic diastolic (congestive) heart failure; F41.8 Other specified anxiety disorders; E11.9 Type 2 diabetes mellitus without complications; G47.33 Obstructive sleep apnea (adult) (pediatric); F03.90 Unspecified dementia, unspecified severity, without behavioral disturbance, psychotic disturbance, mood disturbance, and anxiety; Z90.2 Acquired absence of lung [part of]; Z90.3 Acquired absence of stomach [part of]; Z91.19 Patient's noncompliance with other medical treatment and regimen; T78.40XA Allergy, unspecified, initial encounter; Z85.118 Personal history of other malignant neoplasm of bronchus and lung; E78.5 Hyperlipidemia, unspecified; Z87.891 Personal history of nicotine dependence; I11.0 Hypertensive heart disease with heart failure; E87.6 Hypokalemia
CPT/HCPCS: 0099U; 36415; 71046; 80048; 80053; 82947; 83605; 83735; 83880; 84145; 84484; 85025; 87040; 87070; 87205; 93005; 93010; 94640; 94760; 96365; 96367; 96375; 97110; 97161; 99285-25; A9270-GY; J0456; J0696; J1650; J1940; J2920; J2930; J7030; J7050; J7512; Q0163

== ENCOUNTER 2019-07-15 11:17 | Inpatient (IN) | payer MEDICARE, OTHER ==
[~2019-07-15] VITALS: Ht 188 cm; Wt 100.2 kg
[~2019-07-15 11:17] MED LIST changes: -AIRDUO RESPICL1 EAC2 INH; -ALBU2.5V5 INH; -ALPR.5 PO; -Avodart0.5 MG PO; +BENADRYL25 MG PO; +Florastor250 MG PO; +LEVO750 PO
[2019-07-15 11:52] LABS: BASOPHILS ABSOLUTE AUTO 0.04 K/mm3 (0.00-0.23); BASOPHILS PERCENT AUTO 0 % (0-2); EOSINOPHILS PERCENT AUTO 0 % (0-6); Hematocrit 42.5 % (37.0-53.0); Hemoglobin 13.3 g/dL (13.5-17.5); IMMATURE GRAN ABSOLUTE AUTO 0.16 K/mm3 (0.00-0.10); IMMATURE GRAN PERCENT AUTO 1 % (0-1); LYMPHOCYTES ABSOLUTE AUTO 1.32 K/mm3 (0.84-5.20); LYMPHOCYTES PERCENT AUTO 6 % (21-46); MONOCYTES ABSOLUTE AUTO 0.96 K/mm3 (0.16-1.47); MONOCYTES PERCENT AUTO 4 % (4-13); Mean Corpuscular HGB 28.3 pg (26.0-34.0); Mean Corpuscular HGB Conc 31.3 g/dL (31.5-36.5); Mean Corpuscular Volume 90 fL (80-100); Mean Platelet Volume 10.4 fL (9.1-12.4); NEUTROPHILS ABSOLUTE AUTO 19.54 K/mm3 (1.96-9.15); NEUTROPHILS PERCENT AUTO 89 % (41-73); Platelet Count 226 K/mm3 (150-400); RDW Coefficient Variation 14.5 % (11.7-14.2); RDW Standard Deviation 48.2 fL (35.1-46.3); White Blood Cell Count 22.02 K/mm3 (4.00-11.30)
[2019-07-15 11:56] LABS: Alanine Aminotransfer (ALT/SGP 25 U/L (12-78); Albumin, Blood 3.3 g/dL (3.4-5.0); Albumin/Globulin Ratio 0.8 (0.8-1.8); Alk Phos 107 U/L (50-136); Anion Gap 5 mmol/L (6-16); Aspartate Aminotrans (AST/SGOT 20 U/L (12-37); Bilirubin, Total 0.9 mg/dL (0.1-1.0); Blood Urea Nitrogen 17 mg/dL (8-24); Bun/Creatinine Ratio 15.3 (12.0-20.0); CO2, Blood 30 mmol/L (21-32); Calcium, Blood 8.5 mg/dL (8.5-10.1); Chloride, Blood 105 mmol/L (98-108); Creatinine, Blood 1.11 mg/dL (0.60-1.20); Glomerular Filtration Rate >60 (60-); Glucose, Blood 128 mg/dL (70-99); Potassium, Blood 4.7 mmol/L (3.5-5.5); Sodium, Blood 140 mmol/L (136-145); Total Protein, Blood 7.3 g/dL (6.4-8.2)
[2019-07-15] MEDS ORDERED: ALBU90OI INH (13:42)
[2019-07-15] MEDS ORDERED: NITR.4SL SL (13:43)
[2019-07-15] MEDS ORDERED: Alprazolam1 MG PO (13:45)
[2019-07-15] MEDS ORDERED: OMEPRAZOLE20 MG PO (13:46)
[2019-07-15] MEDS ORDERED: METO25ER PO (13:46)
[2019-07-15] MEDS ORDERED: ESCI20 PO (13:48)
[2019-07-15] MEDS ORDERED: ANORO ELLIPTA1 EACH INH (13:52)
[2019-07-15] MEDS ORDERED: ATOR40TA PO (13:53)
[2019-07-15] MEDS ORDERED: Avodart0.5 MG PO (13:53)
[2019-07-15] MEDS ORDERED: FUROSEMIDE20 MG PO (13:54)
[2019-07-15] MEDS ORDERED: TAMS.4ER PO (13:54)
[2019-07-15] MEDS ORDERED: MIRT15 PO (13:54)
[2019-07-15] MEDS ORDERED: RISP.5 PO (13:55)
[2019-07-15] MEDS ORDERED: FLUTICASONE-SA1 EAC6 INH (13:57)
[2019-07-15] MEDS ORDERED: ALBU2.5V5 NEB (14:23)
[2019-07-15] MEDS ORDERED: Aspir 8181 MG PO (14:23)
--- NOTE | 2019-07-15 16:26 | NUR ---
PT ADMITTED. PT ADMITTED IN STABLE. SPOKE WITH BOTH OF PATIENTS DAUGHTERS & UPDATED THEM. PT LIVES WITH DAUGHTER, ARCHANA. ARCHANA STATED THAT PT IS SUPPOST TO WEAR 2-3L O2 DURING THE DAY & NIGHT, BUT OFTEN REFUSES DURING THE DAY. PT IS ALSO OFTEN NONCOMPLIANT WITH CPAP AT HOME. PT HAS BECOME INCREASINGLY INCONT IN THE LAST MONTH PER PT DAUGHTER. PT IS NORMALLY IND WITH AMBULATION AT HOME. PT ORIENTED TO ROOM. VITALS & BLOOD SUGAR STABLE. WILL CONTINUE TO MONITOR UNTIL TURNOVER IS COMPLETE.
--- NOTE | 2019-07-15 16:33 | NUR ---
LIVER PANEL REQUEST PT DAUGHTER STATES THAT HIS LUNG IS REQUESTING A LIVER PANEL TO BE ORDERED WHILE PT IS ADMITTED. PT DAUGHTER INFORMED THAT [facility] ARE WNL.
[2019-07-16 05:14] LABS: BASOPHILS ABSOLUTE AUTO 0.02 K/mm3 (0.00-0.23); BASOPHILS PERCENT AUTO 0 % (0-2); EOSINOPHILS PERCENT AUTO 0 % (0-6); Hematocrit 38.3 % (37.0-53.0); Hemoglobin 11.6 g/dL (13.5-17.5); IMMATURE GRAN ABSOLUTE AUTO 0.03 K/mm3 (0.00-0.10); IMMATURE GRAN PERCENT AUTO 0 % (0-1); LYMPHOCYTES ABSOLUTE AUTO 2.71 K/mm3 (0.84-5.20); LYMPHOCYTES PERCENT AUTO 27 % (21-46); MONOCYTES ABSOLUTE AUTO 0.79 K/mm3 (0.16-1.47); MONOCYTES PERCENT AUTO 8 % (4-13); Mean Corpuscular HGB 27.9 pg (26.0-34.0); Mean Corpuscular HGB Conc 30.3 g/dL (31.5-36.5); Mean Corpuscular Volume 92 fL (80-100); Mean Platelet Volume 10.1 fL (9.1-12.4); NEUTROPHILS ABSOLUTE AUTO 6.57 K/mm3 (1.96-9.15); NEUTROPHILS PERCENT AUTO 65 % (41-73); Platelet Count 175 K/mm3 (150-400); RDW Coefficient Variation 14.9 % (11.7-14.2); RDW Standard Deviation 50.3 fL (35.1-46.3); Red Blood Cell Count 4.16 M/mm3 (4.30-5.90); White Blood Cell Count 10.12 K/mm3 (4.00-11.30)
--- NOTE | 2019-07-16 05:25 | NUR ---
07/16/19 0515 BLADDER SCAN DONE AT 0430 SHOWED >999ML. MD CALLED. #16 F ARMANDO CATHETER INSERTED WITHOUT PROBLEMS. 1100 ML OUTPUT. UA SENT TO LAB PER ORDER. CATHETER SECURED WITH STAT-LOCK. PT SLEEPING AFTERWARDS. VITALS STABLE. OTHERWISE UNEVENTFUL NIGHT.
[2019-07-16 05:38] LABS: Alanine Aminotransfer (ALT/SGP 19 U/L (12-78); Albumin, Blood 2.8 g/dL (3.4-5.0); Albumin/Globulin Ratio 0.8 (0.8-1.8); Alk Phos 83 U/L (50-136); Anion Gap 3 mmol/L (6-16); Aspartate Aminotrans (AST/SGOT 14 U/L (12-37); Bilirubin, Total 1.5 mg/dL (0.1-1.0); Blood Urea Nitrogen 18 mg/dL (8-24); Bun/Creatinine Ratio 17.3 (12.0-20.0); CO2, Blood 31 mmol/L (21-32); Calcium, Blood 8.1 mg/dL (8.5-10.1); Chloride, Blood 105 mmol/L (98-108); Creatinine, Blood 1.04 mg/dL (0.60-1.20); Globulin, Blood 3.5 g/dL (2.2-4.0); Glomerular Filtration Rate >60 (60-); Glucose, Blood 95 mg/dL (70-99); Magnesium, Blood 2.4 mg/dL (1.6-2.4); Potassium, Blood 4.1 mmol/L (3.5-5.5); Sodium, Blood 139 mmol/L (136-145); Total Protein, Blood 6.3 g/dL (6.4-8.2)
[2019-07-16 05:39] LABS: Source, Urine Catheter
[2019-07-16 05:42] LABS: Bilirubin, Urine Neg (Neg); Blood, Urine 3+ (Neg); Glucose Qualitative, Urine Neg (Neg); Ketones, Urine Neg (Neg); Leukocyte Esterase, Urine Neg (Neg); Nitrite, Urine Neg (Neg); Protein, Urine Neg (Neg); Urobilinogen, Urine NORM (Normal); pH, Urine 6.5 (5.0-8.0)
[2019-07-16 05:58] LABS: Color, Urine Yellow (P-Yellow)
[2019-07-16 05:59] LABS: Appearance, Urine Clear (Clear); Bacteria Not Seen /hpf; Squamous Epithelial Cells Not Seen /hpf (Few); White Blood Cells, Urine 0-2 /hpf (0-5)
--- NOTE | 2019-07-16 15:38 | NUR ---
DR. BRADY NOTIFIED OF BLOOD AND SMALL CLOTS IN URINE IN ARMANDO CATH. NO NEW ORDERS GIVEN AT THIS TIME.
--- NOTE | 2019-07-16 18:30 | NUR ---
SHIFT SUMMARY: PT A&O, FORGETFUL AT TIMES. RED URINE WITH SMALL CLOTS NOTED IN ARMANDO. DR. BRADY NOTIFIED. NO NEW ORDERS GIVEN. OKAY TO CONTINUE ON HEPARIN INJECTIONS. NO PAIN OR NAUSEA. PT ON 2L OXYGEN VIA NC. LUNG SOUNDS ARE DIMINISHED THROUGHOUT. OXYGEN LEVEL IS 94% ON 2L.
--- NOTE | 2019-07-16 20:31 | NUR ---
ASSUMED CARE. EVIN IS AOX3, DOES HAVE FORGETFULNESS. COOPERATIVE. LUNG SOUNDS DIMINISHED THROUGHOUT, COUGH IS NON-PRODUCTIVE, DENIES SOB EXCEPT WHEN HE GETS UP TO MOVE. ON 2 LITERS SATS IN THE 90'S PER CONTINUOUS BIOX. HR REGULAR. CATHETER WITH PINK URINE FROM HAVING SOME BLOOD FROM CATHERIZATION. IT IS CLEARING UP. ENCOURAGED THE PATIENT TO DRINK FLUIDS TO HELP FLUSH OUT THE BLOOD. DENIES ANY PAIN OR DISOMFORT. BED ALARM IS ON. CALL LIGHT IN REACH. WILL CONTINUE TO MONITOR.
--- NOTE | 2019-07-16 21:49 | NUR ---
EVIN IS SITTING UP IN HIS CHAIR, CHAIR ALARM IS ON. WATCHING TV. ASKED FOR SOME MAGAZINES. GAVE HIM SEVERAL TO CHOSE FROM. PLANS TO LAY BACK DOWN AFTER READY SOME. CALL LIGHT IS IN REACH.
--- NOTE | 2019-07-17 00:54 | NUR ---
EVIN IS ASLEEP WITH NO SIGNS OF DISTRESS. WILL CONTINUE TO MONITOR. CALL LIGHT IN REACH.
[2019-07-17 05:08] LABS: BASOPHILS ABSOLUTE AUTO 0.01 K/mm3 (0.00-0.23); BASOPHILS PERCENT AUTO 0 % (0-2); EOSINOPHILS PERCENT AUTO 0 % (0-6); Hematocrit 39.5 % (37.0-53.0); Hemoglobin 12.1 g/dL (13.5-17.5); IMMATURE GRAN ABSOLUTE AUTO 0.04 K/mm3 (0.00-0.10); IMMATURE GRAN PERCENT AUTO 0 % (0-1); LYMPHOCYTES ABSOLUTE AUTO 1.79 K/mm3 (0.84-5.20); LYMPHOCYTES PERCENT AUTO 17 % (21-46); MONOCYTES ABSOLUTE AUTO 0.63 K/mm3 (0.16-1.47); MONOCYTES PERCENT AUTO 6 % (4-13); Mean Corpuscular HGB 27.6 pg (26.0-34.0); Mean Corpuscular HGB Conc 30.6 g/dL (31.5-36.5); Mean Corpuscular Volume 90 fL (80-100); Mean Platelet Volume 10.4 fL (9.1-12.4); NEUTROPHILS ABSOLUTE AUTO 7.79 K/mm3 (1.96-9.15); NEUTROPHILS PERCENT AUTO 76 % (41-73); Platelet Count 190 K/mm3 (150-400); RDW Coefficient Variation 14.4 % (11.7-14.2); RDW Standard Deviation 48.1 fL (35.1-46.3); Red Blood Cell Count 4.38 M/mm3 (4.30-5.90); White Blood Cell Count 10.26 K/mm3 (4.00-11.30)
--- NOTE | 2019-07-17 05:26 | NUR ---
SHIFT SUMMARY: 88 Y/O ADMITTED FOR SOB AND WEAKNESS. AOX4, COOPERATIVE ALL SHIFT. LUNGS SOUNDS DIMINISHED, COUGH CHRONIC NON-PRODUCTIVE. SATS HAVE REMAINED IN THE 90'S ON 2 LITERS OF O2. HR HAS REMAINED IN THE 70-90'S RANGE. HE HAS DENIED ANY SOB EVEN DURING EXERTION. SBA TO BSC OR CHAIR. USES CALL LIGHT APPROPRIATLY. ARMANDO CATHETER REMAINED PATENT, WAS SLIGHTLY PINK AT START OF SHIFT DUE TO SOME BLOODY RESIDUAL FROM CATHETER INSERTION BUT IS NOW CLEAR YELLOW IN COLOR. MEDS GIVEN WITH WATER. DENIED ANY PAIN OR DISCOMFORT. VS WNL. WILL CONTINUE TO MONITOR TILL DAY SHIFT ARRIVES.
[2019-07-17 05:29] LABS: Alanine Aminotransfer (ALT/SGP 20 U/L (12-78); Albumin, Blood 2.9 g/dL (3.4-5.0); Albumin/Globulin Ratio 0.8 (0.8-1.8); Alk Phos 84 U/L (50-136); Anion Gap 5 mmol/L (6-16); Aspartate Aminotrans (AST/SGOT 14 U/L (12-37); Bilirubin, Total 0.8 mg/dL (0.1-1.0); Blood Urea Nitrogen 18 mg/dL (8-24); Bun/Creatinine Ratio 18.3 (12.0-20.0); CO2, Blood 31 mmol/L (21-32); Calcium, Blood 8.6 mg/dL (8.5-10.1); Chloride, Blood 104 mmol/L (98-108); Creatinine, Blood 0.98 mg/dL (0.60-1.20); Globulin, Blood 3.8 g/dL (2.2-4.0); Glomerular Filtration Rate >60 (60-); Glucose, Blood 123 mg/dL (70-99); Potassium, Blood 4.5 mmol/L (3.5-5.5); Sodium, Blood 140 mmol/L (136-145); Total Protein, Blood 6.7 g/dL (6.4-8.2)
[2019-07-17] MEDS ORDERED: GUAI600T33 PO (11:41)
[2019-07-17] MEDS ORDERED: PRED20 PO (11:42)
--- NOTE | 2019-07-17 14:36 | NUR ---
DISCHARGE NOTE: PT DISCHARGED HOME WITH DAUGHTER AND HOME HEALTH. IV AND ARMANDO REMOVED. DISCHARGE INSTRUCTIONS GONE OVER WITH DAUGHTER ARCHANA, SHE DENIES ANY FURTHER QUESTIONS AT THIS TIME. PT TAKEN TO DAUGHTER VIA W/C. PT DISCHARGED AT 1422.
== END 2019-07-17 14:22 | disposition home health service (06) | DRG 202 ==
LOC: ER 11:17 → MEDS 14:14
PROVIDERS: Emergency Medicine; Family Medicine; ADMIT Internal Medicine
DX: J20.9 Acute bronchitis, unspecified (principal); J44.0 Chronic obstructive pulmonary disease with (acute) lower respiratory infection; I50.32 Chronic diastolic (congestive) heart failure; D72.829 Elevated white blood cell count, unspecified; T38.0X5A Adverse effect of glucocorticoids and synthetic analogues, initial encounter; F41.9 Anxiety disorder, unspecified; E11.9 Type 2 diabetes mellitus without complications; G47.33 Obstructive sleep apnea (adult) (pediatric); I11.0 Hypertensive heart disease with heart failure; R53.1 Weakness; F32.9 Major depressive disorder, single episode, unspecified; K21.9 Gastro-esophageal reflux disease without esophagitis; N40.1 Benign prostatic hyperplasia with lower urinary tract symptoms; R33.8 Other retention of urine; M10.9 Gout, unspecified; E78.5 Hyperlipidemia, unspecified; F03.90 Unspecified dementia, unspecified severity, without behavioral disturbance, psychotic disturbance, mood disturbance, and anxiety; Z85.118 Personal history of other malignant neoplasm of bronchus and lung; Z85.828 Personal history of other malignant neoplasm of skin; Z87.891 Personal history of nicotine dependence; Z90.2 Acquired absence of lung [part of]; Z99.81 Dependence on supplemental oxygen; Z79.82 Long term (current) use of aspirin; Z79.52 Long term (current) use of systemic steroids; Z79.899 Other long term (current) drug therapy
CPT/HCPCS: 36415; 71045; 74176; 80053; 81001; 82947; 83605; 83735; 83880; 85025; 87040; 87493; 93005; 93010; 94640; 94760; 94761; 94762; 96361; 96365; 96367; 97112; 97162; 99285-25; A9270-GY; J0456; J0696; J1644; J7030; J7050; J7512

== ENCOUNTER 2019-11-26 13:23 | Day surgery (SDC) | payer MEDICARE, OTHER ==
[~2019-11-26 13:23] MED LIST changes: +ALBU2.5V5 NEB; +Alprazolam1 MG PO; +Aspir 8181 MG PO; +Avodart0.5 MG PO; +FLUTICASONE-SA1 EAC6 INH; +FUROSEMIDE20 MG PO
== END 2019-11-26 22:45 | disposition home or self-care (01) ==
LOC: CT 13:23
DX: C79.51 Secondary malignant neoplasm of bone (principal); C34.11 Malignant neoplasm of upper lobe, right bronchus or lung
CPT/HCPCS: 20225; 77012